=== PATIENT | female | born 1970 | race Caucasian/White ===

== ENCOUNTER → 2019-02-23 10:52 | Outpatient (CLI) | payer BC, SELFPAY ==
--- NOTE | 2019-02-23 10:56 | BI_ITS ---
MAMMOGRAPHY - BILATERAL SCREENING REASON FOR EXAM: Female, 48 years old. Routine annual screening examination. PERTINENT HISTORY: Aunt with breast cancer. Occasional inversion of the left nipple. TECHNIQUE: Digital bilateral breast stephane (3D mammographic acquisition) in the CC and MLO projections. 2-D mediolateral oblique (MLO) and craniocaudad (CC) views of both breasts were obtained. CAD: Full Field Digital Mammography with Computer Added Detection was performed. COMPARISON: Comparison is made with prior study dated October 11, 2016 and February 17, 2017. FINDINGS: Breast Composition: The breasts are heterogeneously dense, which may obscure small masses. There are no dominant masses or suspicious calcifications. Stable small bilateral axillary lymph nodes. No other significant abnormalities are identified. There has been no significant change since the prior study. BI/SCREENING MAMM (CAD), BILAT IMPRESSION: Stable bilateral screening mammogram. Yearly follow-up mammogram recommended. (A) ASSESSMENT CATEGORY: BIRADS Category 2: Benign. A letter regarding these results will be sent to the patient by the facility within 30 days. Approximately 10% of breast cancers are not detected by mammography. A normal mammogram should not delay biopsy of a clinically suspicious abnormality. [id number] Electronically Signed: Marcellus Briseno, at 14:16 EDT , Service support ,
== END ==
PROVIDERS: Family Provider Family Medicine; PCP Family Medicine; Visit Provider Family Medicine
DX: Z12.31 Encounter for screening mammogram for malignant neoplasm of breast (principal)
CPT/HCPCS: 77063; 77067

== ENCOUNTER → 2020-05-23 09:37 | Outpatient (CLI) | payer BC, SELFPAY ==
[2020-05-23 10:28] LABS: Absolute Lymphocyte Count 2.05 X10^3/uL (0.83-4.51); Absolute Neutrophil Count 5.1 X10^3/uL (2.0-7.7); Basophil# 0.04 X10^3/uL; Basophil% 0.5 % (0-1); Eosinophil# 0.95 X10^3/uL; Eosinophils% 11.1 % (0-5); Hematocrit 41.8 % (37-47); Hemoglobin 13.4 g/dL (12.0-15.0); Lymphocyte # 2.05 X10^3/ul (4.0); Lymphocyte % 23.9 % (19-41); Mean Corp Hgb Conc 32.1 g/dL (32-36); Mean Corpuscular Hgb 29.5 pg (27.0-32.0); Mean Corpuscular Volume 92.1 fL (81-99); Mean Platelet Vol. 10.4 fl (6.2-12.0); Monocyte# 0.47 X10^3/uL; Monocyte% 5.5 % (0-10); NRBC Flagged by Analyzer 0 % (0-5); Neutrophil # 5.05 X10^3/uL (2.7-7.7); Neutrophil % 58.7 % (47-70); Platelet Count 302 K/mm3 (150-450); RBC Distribution Width CV 13.1 % (11.6-14.6); RBC Distribution Width SD 44.8 fl (35.1-43.9); Red Blood Count 4.54 M/mm3 (4.2-5.4); White Blood Count 8.6 K/mm3 (4.4-11.0)
[2020-05-23 10:53] LABS: AST(SGOT) 17 U/L (15-37); Alanine Aminotransfer ALT/SGPT 23 U/L (13-56); Albumin, Serum 3.7 g/dL (3.2-5.0); Alkaline Phosphatase 58 U/L (45-117); Anion Gap 6 (5-15); BUN 22 mg/dL (7-18); BUN/Creat Ratio 28.1 RATIO (10-20); Calcium,Total 9.1 mg/dL (8.5-10.1); Chloride 104 mmol/L (98-107); Cholesterol 218 mg/dL (200); Creatinine, Serum 0.78 mg/dL (0.55-1.02); EST Glomerular Filtration Rate 84 mL/min (>60); Est Glom Filt Rate - Afr Amer 101 mL/min (>60); Globulin 3.6 g/dL (2.2-4.2); Glucose 93 mg/dL (74-106); High Density Lipoprotein 55 mg/dL; Protein, Total 7.3 g/dL (6.4-8.2); Sodium Level 138 mmol/L (136-145); Thyroid Stim Hormone (TSH) 2.91 uIU/mL (0.358-3.74); Triglycerides 118 mg/dL; Very Low Density Lipoprotein 24 mg/dL (5-40)
== END ==
PROVIDERS: PCP Family Medicine; Visit Provider Family Medicine
DX: Z00.00 Encounter for general adult medical examination without abnormal findings (principal); Z79.899 Other long term (current) drug therapy; F33.9 Major depressive disorder, recurrent, unspecified
CPT/HCPCS: 36415; 80053; 80061; 84443; 85025

== ENCOUNTER → 2020-05-25 13:19 | Outpatient (CLI) | payer BC, SELFPAY ==
[2020-05-30 19:59] LABS: HPV Reflexed? NOT INDICATED
== END ==
PROVIDERS: PCP Family Medicine; Visit Provider Obstetrics & Gynecology
DX: Z12.4 Encounter for screening for malignant neoplasm of cervix (principal)
CPT/HCPCS: 88175; G0145

== ENCOUNTER → 2020-07-28 08:09 | Outpatient (CLI) | payer BC, SELFPAY ==
--- NOTE | 2020-07-28 08:39 | BI_ITS ---
MAMMOGRAPHY - BILATERAL SCREENING REASON FOR EXAM: Female, 50 years old. Routine annual screening examination. PERTINENT HISTORY: Aunt with breast cancer. TECHNIQUE: Digital bilateral breast randolph (3D mammographic acquisition) in the CC and MLO projections. 2-D mediolateral oblique (MLO) and craniocaudad (CC) views of both breasts were obtained. CAD: Full Field Digital Mammography with Computer Added Detection was performed. COMPARISON: Comparison is made with prior study dated 02/23/2019 and 02/17/2017. FINDINGS: Breast Composition: The breasts are heterogeneously dense, which may obscure small masses. There are no dominant masses or suspicious calcifications. No other significant abnormalities are identified. There has been no significant change since the prior study. BI/SCREEN MAMM (CAD) W/RANDOLPH BILAT IMPRESSION: Stable bilateral screening mammogram. Yearly follow-up mammogram recommended. (A) ASSESSMENT CATEGORY: BIRADS Category 1: Negative. A letter regarding these results will be sent to the patient by the facility within 30 days. Approximately 10% of breast cancers are not detected by mammography. A normal mammogram should not delay biopsy of a clinically suspicious abnormality. [id number] Electronically Signed: Marcellus Briseno, at 8:43 EDT , Service support ,
== END ==
PROVIDERS: PCP Family Medicine; Referring Provider Obstetrics & Gynecology; Visit Provider Obstetrics & Gynecology
DX: Z12.31 Encounter for screening mammogram for malignant neoplasm of breast (principal)
CPT/HCPCS: 77063; 77067

== ENCOUNTER → 2020-09-14 | Outpatient (CLI) | payer BC, SELFPAY | END | disposition home or self-care (01) | PROVIDERS: PCP Family Medicine; Referring Provider Family Medicine; Visit Provider Family Medicine | DX: J39.9 Disease of upper respiratory tract, unspecified (principal) | CPT/HCPCS: 87633 ==

== ENCOUNTER 2020-11-27 08:00 | Outpatient (RCR) | payer BC, SELFPAY | END 2020-11-27 23:59 | LOC: IMMUN 08:00 | PROVIDERS: PCP Family Medicine; Visit Provider Family Medicine | DX: Z23 Encounter for immunization (principal) | CPT/HCPCS: 0011A; 0012A ==

== ENCOUNTER → 2021-03-18 | Outpatient (CLI) | payer BC, SELFPAY ==
--- NOTE | 2021-03-18 | VUL_PTH ---
PATIENT: MAURISIO ROSE LOC: [facility] U#:[id number] AGE/SX: 50/F ROOM: RE03/18/[address]: Dr. Silverio Pang MD : 1970 BED: DIS: 03/18/2021 SPEC #: [id number] RECD: 03/18/21 14:21 STATUS: JAYLEEN RE #: [id number] RUSS: 03/18/21 00:[address]: Silverio Pang DEPT: SURGICAL PATHOLOGY RECD BY: Mariah Crenshaw ENTERED: 03/19/21 08:31 SP TYPE: VULVA BX OTHR DR: Dr. Julio Hdz MD Tissues: Vulva, NOS Procedures: Surgery Specimen Level IV HEADER OPERATION: Vulvar biopsy PRE-OP DIAGNOSIS: Vulvar rash TISSUE SUBMITTED: Vulvar biopsy MICROSCOPIC DIAGNOSIS Vulvar biopsy: A piece of skin with underlying tissue with epithelial hyperplasia and hyperkeratosis. Focal mild chronic inflammation. SJ:chidi 03/20/2021 MICROSCOPIC DESCRIPTION Slides are reviewed. GROSS DESCRIPTION Received in fixative is one container labeled with the patient's name and designated vulvar biopsy. The specimen consists of a piece of friedman soft tissue measuring 1.5 x 0.4 x 0.2 cm. The entire specimen is submitted in one cassette. / SJ:rg 03/19/21 TC:3 CPT: 37002
== END | disposition home or self-care (01) ==
LOC: LABSPEC 13:40
PROVIDERS: PCP Family Medicine; Visit Provider Obstetrics & Gynecology
DX: N76.89 Other specified inflammation of vagina and vulva (principal)
CPT/HCPCS: 88305

== ENCOUNTER 2022-02-20 14:01 | Outpatient (CLI) | payer BC, SELFPAY ==
[2022-02-27 15:58] LABS: HPV APTIMA, High Risk Negative (Negative)
== END 2022-02-20 23:59 | disposition home or self-care (01) ==
LOC: LABSPEC 14:03
PROVIDERS: PCP Family Medicine; Referring Provider Obstetrics & Gynecology; Visit Provider Obstetrics & Gynecology
DX: Z12.4 Encounter for screening for malignant neoplasm of cervix (principal)
CPT/HCPCS: 87624; 88175; G0145

== ENCOUNTER → 2022-05-13 | Outpatient (CLI) | payer BC, SELFPAY ==
--- NOTE | 2022-05-13 10:43 | BI_ITS ---
MAMMOGRAPHY - BILATERAL SCREENING REASON FOR EXAM: Female, 52 years old. Routine annual screening examination. PERTINENT HISTORY: Aunt with breast cancer. TECHNIQUE: Digital bilateral breast randolph (3D mammographic acquisition) in the CC and MLO projections. 2-D mediolateral oblique (MLO) and craniocaudad (CC) views of both breasts were obtained. CAD: Full Field Digital Mammography with Computer Added Detection was performed. COMPARISON: Comparison is made with prior study dated 07/28/2020 and 02/23/2019. FINDINGS: Breast Composition: The breasts are heterogeneously dense, which may obscure small masses. There are no dominant masses or suspicious calcifications. Stable small benign appearing bilateral axillary lymph nodes. No other significant abnormalities are identified. There has been no significant change since the prior study. BI/SCRN MAMM (CAD)W/RANDOLPH BILAT IMPRESSION: Stable bilateral screening mammogram. Yearly follow-up mammogram recommended. (A) ASSESSMENT CATEGORY: BIRADS Category 2: Benign. A letter regarding these results will be sent to the patient by the facility within 30 days. Approximately 10% of breast cancers are not detected by mammography. A normal mammogram should not delay biopsy of a clinically suspicious abnormality. [id number] Electronically Signed: Marcellus Briseno MD at 11:23 EDT ,
== END | disposition home or self-care (01) ==
LOC: OPBI 10:41
PROVIDERS: PCP Family Medicine; Visit Provider Obstetrics & Gynecology
DX: Z12.31 Encounter for screening mammogram for malignant neoplasm of breast (principal)
CPT/HCPCS: 77063; 77067

== ENCOUNTER → 2022-05-19 | Outpatient (CLI) | payer BC, SELFPAY ==
[2022-05-19 08:37] LABS: AST(SGOT) 12 U/L (15-37); Alanine Aminotransfer ALT/SGPT 21 U/L (13-56); Albumin, Serum 3.6 g/dL (3.2-5.0); Alkaline Phosphatase 61 U/L (45-117); Anion Gap 10 (5-15); BUN 26 mg/dL (7-18); BUN/Creat Ratio 34.7 RATIO (10-20); Calcium,Total 9.3 mg/dL (8.5-10.1); Chloride 104 mmol/L (98-107); Cholesterol 221 mg/dL (200); Creatinine, Serum 0.75 mg/dL (0.55-1.02); EST Glomerular Filtration Rate 87 mL/min (>60); Est Glom Filt Rate - Afr Amer 105 mL/min (>60); Globulin 3.5 g/dL (2.2-4.2); Glucose 95 mg/dL (74-106); High Density Lipoprotein 56 mg/dL; Potassium 3.7 mmol/L (3.5-5.1); Protein, Total 7.1 g/dL (6.4-8.2); Sodium Level 141 mmol/L (136-145); Triglycerides 164 mg/dL; Very Low Density Lipoprotein 33 mg/dL (5-40)
== END | disposition home or self-care (01) ==
LOC: LAB 07:22
PROVIDERS: PCP Family Medicine; Visit Provider Family Medicine
DX: Z00.00 Encounter for general adult medical examination without abnormal findings (principal)
CPT/HCPCS: 36415; 80053; 80061; 86141

== ENCOUNTER → 2023-05-19 | Outpatient (CLI) | payer OTHER, SELFPAY ==
--- NOTE | 2023-05-19 15:42 | BI_ITS ---
MAMMOGRAPHY - BILATERAL SCREENING REASON FOR EXAM: Female, 53 years old. Routine annual screening examination. PERTINENT HISTORY: Aunt with breast cancer. TECHNIQUE: Digital bilateral breast randolph (3D mammographic acquisition) in the CC and MLO projections. 2-D mediolateral oblique (MLO) and craniocaudad (CC) views of both breasts were obtained. CAD: Full Field Digital Mammography with Computer Added Detection was performed. COMPARISON: Comparison is made with prior study dated May 13, 2022 and July 28, 2020. FINDINGS: Breast Composition: The breasts are heterogeneously dense, which may obscure small masses. There are no dominant masses or suspicious calcifications. Stable small benign-appearing bilateral axillary lymph nodes. No other significant abnormalities are identified. There has been no significant change since the prior study. BI/SCRN MAMM (CAD)W/RANDOLPH BILAT IMPRESSION: Stable bilateral screening mammogram. Yearly follow-up mammogram recommended. (A) ASSESSMENT CATEGORY: BIRADS Category 2: Benign. A letter regarding these results will be sent to the patient by the facility within 30 days. Approximately 10% of breast cancers are not detected by mammography. A normal mammogram should not delay biopsy of a clinically suspicious abnormality. [id number] Electronically Signed: Marcellus Briseno MD at 8:01 EDT ,
== END | disposition home or self-care (01) ==
LOC: OPBI 15:40
PROVIDERS: PCP Family Medicine; Referring Provider Obstetrics & Gynecology; Visit Provider Obstetrics & Gynecology
DX: Z12.31 Encounter for screening mammogram for malignant neoplasm of breast (principal); Z80.3 Family history of malignant neoplasm of breast
CPT/HCPCS: 77063; 77067

== ENCOUNTER → 2024-09-06 | Outpatient (CLI) | payer OTHER, SELFPAY ==
[2024-09-06 20:33] LABS: Anion Gap 7 (5-15); BUN 22 mg/dL (7-18); BUN/Creat Ratio 31.6 RATIO (10-20); Calcium,Total 9.4 mg/dL (8.5-10.1); Chloride 106 mmol/L (98-107); Cholesterol 222 mg/dL (200); EST Glomerular Filtration Rate 94 mL/min (>60); Est Glom Filt Rate - Afr Amer 113 mL/min (>60); Follicle Stimulating Hormone 12.5 mIU/mL; Glucose 90 mg/dL (74-106); High Density Lipoprotein 64 mg/dL; Luteinizing Hormone 14.4 mIU/mL; Potassium 3.7 mmol/L (3.5-5.1); Sodium Level 139 mmol/L (136-145); Triglycerides 109 mg/dL; Very Low Density Lipoprotein 22 mg/dL (5-40)
[2024-09-08 11:10] LABS: PROGESTERONE 0.3 ng/mL (.)
[2024-09-14 01:07] LABS: Estrogen, Total, Serum 155 pg/mL (.)
== END | disposition home or self-care (01) ==
LOC: MFPLAB 15:12
PROVIDERS: PCP Family Medicine; Referring Provider Nurse Practitioner Family; Visit Provider Nurse Practitioner Family
DX: Z13.220 Encounter for screening for lipoid disorders (principal); N91.2 Amenorrhea, unspecified; R53.83 Other fatigue; Z13.1 Encounter for screening for diabetes mellitus
CPT/HCPCS: 36415; 80048; 80061; 82672; 83001; 83002; 84144; 84443

== ENCOUNTER 2024-12-02 05:12 | Day surgery (SDC) | payer OTHER, SELFPAY ==
[2024-12-02] VITALS (7 sets, daily range): BP systolic 109–153; BP diastolic 63–74; PULSE 84–116; RESP 16; TEMP 36.1–37; O2SAT 93–97; BMI 36.1
--- NOTE | 2024-12-02 06:25 | PRE.ANES_ITS ---
ASA Classification* ASA Classification ASA Classification: 2 Assessment & Plan Anesthesia* Anesthesia Assessment Anesthesia Assessment: Discussed sedation and/or anesthesia options, risks, benefits, and alternatives with patient/parents/legal guardian/POA. Questions invited. The patient/parents/legal guardian/POA seems to understand and agrees to proceed with anesthesia plan. Reviewed the physical assessment, medical history, allergy history and patient home medications list prior to surgery/procedure/anesthetic and documented any changes. Performed airway and anesthesia risk assessments. Anesthesia Type Anesthesia Type: MAC History Source History Obtained from:: Patient and Chart Anesthesia Focused Assessment* Temperature: 98.6 F Pulse Rate: 116 Blood Pressure: 153/71 Respiratory Rate: 16 Pulse Ox: 97 Oxygen Delivery Method: Room Air Airway Assessment Mouth opens: 2 cm Mallampati Score: IV Teeth Condition: Intact Neck Range of motion (ROM): Limited ROM Focused Labs Anesthesia Preop lab: CBC WBC 8.6 K/mm3 (4.4-11.0) 05/23/20 09:39 RBC 4.54 M/mm3 (4.2-5.4) 05/23/20 09:39 Hgb 13.4 g/dL (12.0-15.0) 05/23/20 09:39 Hct 41.8 % (37-47) 05/23/20 09:39 Plt Count 302 K/mm3 (150-450) 05/23/20 09:39 CHEMISTRY Potassium 3.7 mmol/L (3.5-5.1) 09/06/24 15:13 Sodium 139 mmol/L (136-145) 09/06/24 15:13 BUN 22 mg/dL (7-18) H 09/06/24 15:13 Creatinine 0.70 mg/dL (0.55-1.02) 09/06/24 15:13 Glucose 90 mg/dL (74-106) 09/06/24 15:13 TSH 2.700 uIU/mL (0.358-3.740) 09/06/24 15:13 COAG Pre-Assessment Diagnosis/Proposed Procedure Planned Operative Procedure(s): COLONOSCOPY Anesthesia History Anesthesia History - director of product management: Anesthesia History - director of product management Hx Hospitalization No 11/29/24 14:17 Any Problems With Anesthesia No 11/29/24 14:17 Cholinesterase deficiency No 11/29/24 14:17 You/Your Family Experience No 11/29/24 14:17 fever (hyperthermia) with Relationship Recent Exposure to Contagious No 12/02/24 05:48 Disease Does patient have nerve No 11/29/24 14:17 stimulator Patient instructed to have device shut off --Does patient have Pacemaker No 12/02/24 05:48 or ICD? When Was Last Pacemaker Check QUESTION #4 FULL TEXT: You/Your Family Experience fever (hyperthermia) with Anesthesia Last Oral Intake Last Oral intake: Last Oral Intake NPO since 03:00 12/02/24 05:48 Meds taken in AM with sips of water? Meds patient instructed to take am of surgery Any additional information?: Yes NPO since: 02:30 (Patient finished prep at 2:30 AM.) PONV PONV - director of product management: PONV - director of product management Female No 11/29/24 14:17 HX of Motion Sickness No 11/29/24 14:17 HX of N/V After Surgery No 11/29/24 14:17 Non-Smoker Yes 11/29/24 14:17 Duration of Surgery greater No 11/29/24 14:17 than 60 minutes Number of Risk Factors 1 11/29/24 14:17 PONV Score Low Risk 11/29/24 14:17 Height & Weight Height & Weight: Anesthesia: Height & Weight Height 5 ft 12/02/24 05:48 Weight: 84 kg 12/02/24 05:48 Body Mass Index (BMI) 36.1 12/02/24 05:48 Respiratory Assessment Respiratory Assessment - director of product management: Respiratory Tract Infection Hx - director of product management Hx Respiratory Tract Infection No 11/29/24 14:17 STOP Sleep Apnea STOP Sleep Apnea - director of product management: STOP Sleep Apnea - director of product management Hx Hypertension No 11/29/24 14:17 Hx Sleep Apnea No 11/29/24 14:17 CPAP BIPAP Do you snore loudly (louder No 11/29/24 14:17 than talking or can be heard Do you often feel tired/ No 11/29/24 14:17 fatigued/ sleepy during daytime? Has anyone observed you stop No 11/29/24 14:17 breathing during sleep? STOP Results Negative 11/29/24 14:17 QUESTION #5 FULL TEXT : Do you snore loudly (louder than talking or can be heard through closed doors)? Tobacco Use History Tobacco Use History - director of product management: Tobacco Use History - director of product management Tobacco Use Smoking Status Never smoker 11/29/24 14:17 Hx Tobacco Use No 11/29/24 14:17 Years Smoking Packs Smoked per Day Smoking Cessation Date was within the last 15 years Hx Smoking Cessation Date Hx Smoking Cessation Counseling Hematologic Medial History Hematologic Hx - director of product management: Hematologic Medical Hx - drilling supervisor Hx of Blood Transfusion No 11/29/24 14:17 Hx of Transfusion in last 3 No 11/29/24 14:17 Months Date of Last Transfusion (if within last 3 months) Ever experience any problems No 11/29/24 14:17 with transfusion(s)? Specify any problems Hx of Preganancy in last 3 No 11/29/24 14:17 Months Nurse Filling Out Transfusion [id number] 11/29/24 14:17 & Questions: Date: 11/29/24 11/29/24 14:17 Time: 14:19 11/29/24 14:17 Patient unable to answer at this time (ie. confused, unrespo /Reproduction History /Reproductive History - director of product management: /Reproductive Hx- director of product management Hx Now No 11/29/24 14:17 Gestational Age (in weeks): EDC: Hx Hx Para Hx Section SAB No 11/29/24 14:17 [facility] Medical History (Updated 11/29/24 @ 14:22 by Carlos Chairez) Wears contact lenses Anxiety Alcohol use Heartburn Non-smoker Depression Hemorrhoids Home Medications ?Medication ?Instructions ?Recorded ?Last Taken ?Type multivitamin 1 tab PO DAILY 04/09/24 Unknown History amitriptyline 25 mg tablet 25 mg PO QHS PRN sleep 09/09/24 Unknown History buspirone 10 mg tablet 20 mg PO BID 09/09/24 Unknown History clobetasol 0.05 % topical cream 1 applic topical QDAY PRN rash 09/09/24 Unknown History estradiol 10 mcg vaginal tablet 10 mcg vaginal 2XW 09/09/24 Unknown History nitrofurantoin macrocrystal 100 mg 100 mg PO BID PRN ATB 09/09/24 Unknown History capsule quetiapine 300 mg tablet 300 mg PO QHS 09/09/24 Unknown History metformin 500 mg tablet 500 mg PO DAILY 11/29/24 Unknown History Allergy/AdvReac Type Severity Reaction Status Date / Time lithium AdvReac Abdominal Verified 12/02/24 05:47 pain paroxetine (From Paxil) AdvReac Abdominal Verified 12/02/24 05:47 pain Family History (Updated 04/09/24 @ 12:06 by Jessy Sawyer) Other CAD (coronary artery disease) CVA (cerebral vascular accident) Hypertension Surgical History History of dilation and curettage History of section History of cholecystectomy Social History (Updated 09/09/24 @ 12:10 by Alix Candelaria) household members: children current occupational status: employed Smoking Status: Never smoker alcohol intake: current substance use type: does not use Review of Systems (Anesthesia) ROS Narrative System reviewed and no additional complaints, except as documented.
--- NOTE | 2024-12-02 06:43 | HP.PCM_ITS ---
HPI - General General Date of Admission: 12/02/24 Date of Service: 12/02/24 Chief Complaint: Screening colonoscopy HPI Narrative MAURISIO ROSE, is a 54 F who presents today for screening colonoscopy. She has never had 1 before. She has no abdominal pain, cramping, diarrhea. Overall she is in very good health. [facility] Medical History Wears contact lenses Anxiety Alcohol use Heartburn Non-smoker Depression Hemorrhoids Home Medications ?Medication ?Instructions ?Recorded ?Last Taken ?Type multivitamin 1 tab PO DAILY 04/09/24 Unknown History amitriptyline 25 mg tablet 25 mg PO QHS PRN sleep 09/09/24 Unknown History buspirone 10 mg tablet 20 mg PO BID 09/09/24 Unknown History clobetasol 0.05 % topical cream 1 applic topical QDAY PRN rash 09/09/24 Unknown History estradiol 10 mcg vaginal tablet 10 mcg vaginal 2XW 09/09/24 Unknown History nitrofurantoin macrocrystal 100 mg 100 mg PO BID PRN ATB 09/09/24 Unknown History capsule quetiapine 300 mg tablet 300 mg PO QHS 09/09/24 Unknown History metformin 500 mg tablet 500 mg PO DAILY 11/29/24 Unknown History Allergy/AdvReac Type Severity Reaction Status Date / Time lithium AdvReac Abdominal Verified 12/02/24 05:47 pain paroxetine (From Paxil) AdvReac Abdominal Verified 12/02/24 05:47 pain Family History Other CAD (coronary artery disease) CVA (cerebral vascular accident) Hypertension Surgical History History of dilation and curettage History of section History of cholecystectomy Social History household members: children current occupational status: employed Smoking Status: Never smoker alcohol intake: current substance use type: does not use ROS Constitutional Constitutional: Denies fatigue, fever(s), poor appetite, weight gain or weight loss Gastrointestinal Gastrointestinal: Denies belching, bloating, change in bowel habits, change in stool character, chewing difficulty, coffee ground emesis, constipation, cramping, diarrhea, dyspepsia, dysphagia, early satiety, excessive flatus, fecal incontinence, heartburn, hematemesis, hematochezia, hemorrhoids, loose stools, melena, nausea, odynophagia, rectal bleeding, tenesmus, vomiting or weight changes Vital Signs Vital Signs Vital Signs: 12/02/24 05:48 12/02/24 05:48 12/02/24 06:28 Temperature 98.6 F 98.6 F Temperature Source Temporal Pulse Rate 116 H 116 H Respiratory Rate 16 16 Respiratory Pattern Normal Blood Pressure 153/71 H 153/71 H Blood Pressure Mean 98 Blood Pressure Source Monitor Blood Pressure Position Sitting Blood Pressure Location Left Arm Pulse Ox 97 97 Oxygen Delivery Method Room Air Room Air Weight Weight: 185 lb 3.013 oz Body Mass Index (BMI) 36.1 Physical Exam Const alert, oriented x3, no apparent distress and healthy appearing General Appearance: cooperative GI normal to inspection, nondistended, normoactive bowel sounds, soft to palpation, non-tender and non-distended Percussion: normal to percussion Rectal Exam: deferred Assessment & Plan Assessment/Plan (1) Encounter for screening for malignant neoplasm of colon: PLAN: She was explained alternatives, risk, benefits include not withstanding bleeding, infection, sepsis, perforation, need for emergent urgent . She will have an ASA of 3.
--- NOTE | 2024-12-02 07:09 | OP.COLON_ITS ---
Patient Name: Cas[place] Procedure Date: 12/02/2024 6:18 AM Date of : 1970 Age: 54 Procedure: Colonoscopy Indications: Screening for colorectal malignant neoplasm Providers: Sergio Randle DO Referring MD: Julio Hdz Medicines: Monitored Anesthesia Care Patient Profile: This is a 54 year old female. Refer to note in patient chart for documentation of history and physical. Last Colonoscopy: none. The patient's first colonoscopy is today. Complications: No immediate complications. Procedure: Pre-Anesthesia Assessment: - Prior to the procedure, a History and Physical was performed, and patient medications and allergies were reviewed. The patient is competent. The risks and benefits of the procedure and the sedation options and risks were discussed with the patient. All questions were answered and informed consent was obtained. Patient identification and proposed procedure were verified by the physician. Mental Status Examination: normal. Prophylactic Antibiotics: The patient does not require prophylactic antibiotics. Prior Anticoagulants: The patient has taken no anticoagulant or antiplatelet agents except for NSAID medication. ASA Grade Assessment: II - A patient with mild systemic disease. After reviewing the risks and benefits, the patient was deemed in satisfactory condition to undergo the procedure. The anesthesia plan was to use monitored anesthesia care (MAC). Immediately prior to administration of medications, the patient was re-assessed for adequacy to receive sedatives. The heart rate, respiratory rate, oxygen saturations, blood pressure, adequacy of pulmonary ventilation, and response to care were monitored throughout the procedure. The physical status of the patient was re-assessed after the procedure. After I obtained informed consent, the scope was passed under direct vision. Throughout the procedure, the patient's blood pressure, pulse, and oxygen saturations were monitored continuously. The Colonoscope was introduced through the anus and advanced to the cecum, identified by appendiceal orifice and ileocecal valve. The colonoscopy was performed without difficulty. The patient tolerated the procedure well. The quality of the bowel preparation was adequate. Scope In: 6:51:56 AM Scope Withdrawal Time 0 hours 7 minutes 26 seconds Scope Out: 7:05:37 AM Total Procedure Duration Time 0 hours 13 minutes 41 seconds Findings: The perianal and digital rectal examinations were normal. A few small-mouthed diverticula were found in the recto-sigmoid colon and sigmoid colon. The exam was otherwise without abnormality on direct and retroflexion views. Impression: - Diverticulosis in the recto-sigmoid colon and in the sigmoid colon. - The examination was otherwise normal on direct and retroflexion views. - No specimens collected. Recommendation: - Discharge patient to home. - Resume previous diet. - Continue present medications. - Repeat colonoscopy in 10 years for screening purposes. Procedure Code(s): --- Professional --- G0121, Colorectal cancer screening; colonoscopy on individual not meeting criteria for high risk CPT copyright 2021 [employer]. All rights reserved. The codes documented in this report are preliminary and upon ends down checker review may be revised to meet current compliance requirements. Sergio Randle DO 12/02/2024 7:08:27 AM This report has been signed electronically. Number of Addenda: 0 Note Initiated On: 12/02/2024 6:18 AM
--- NOTE | 2024-12-02 07:09 | OP.CCLET_ITS ---
12/02/2024 Julio Hdz [address] [place] [address] Re : Colonoscopy procedure for [place] Dear Dr. Hdz This procedure was performed on Monday, December 02, 2024. My impressions and recommendations are as follows: Impressions : - Diverticulosis in the recto-sigmoid colon and in the sigmoid colon. - The examination was otherwise normal on direct and retroflexion views. - No specimens collected. Recommendations : - Discharge patient to home. - Resume previous diet. - Continue present medications. - Repeat colonoscopy in 10 years for screening purposes. My findings are described in the full procedure note, which is enclosed. If I can be of further assistance, please feel free to contact me at . Sincerely, Sergio Randle, 12/02/2024 7:08:27 AM This report has been signed electronically.
--- NOTE | 2024-12-02 07:15 | PCM.POST.ANE ---
Anesthesia: Postop Eval I Current Vital Signs Temperature: 97 F Pulse Rate: 91 Blood Pressure: 109/63 Respiratory Rate: 16 Pulse Ox: 96 Oxygen Delivery Method: Room Air Assessment Airway patent: Yes Spontaneous unlabored respirations: Yes Mental status: Asleep nausea: No Vomiting: No Anesthesia Complication: No Fluid Hydration Crystalloid volume administer (ml): 50 Total IV fluid infused: 50 Progress Note Anesthesia document: Postop Eval 1 completed: Yes
--- NOTE | 2024-12-02 10:31 | PCM.POSTANE2 ---
Anesthesia Postop Eval I Sum Postop Eval Completion status Anesthesia document: Postop Eval 1 completed: Yes Anesthesia Postop Eval I Summary Anesthesia Postop Eval I Summary: Anesthesia Postop Eval I: Assessment Summary Airway patent Yes 12/02/24 07:15 [email or web address] Spontaneous unlabored Yes 12/02/24 07:15 [email or web address] respirations Mental status Asleep 12/02/24 07:15 [email or web address] nausea No 12/02/24 07:15 [email or web address] Vomiting No 12/02/24 07:15 [email or web address] Anesthesia Postop Eval I: Fluid Summary Crystalloid volume administer 50 12/02/24 07:15 [email or web address] (ml) Colloids volume administered ( ml) Blood Product volume administered (ml) Total IV fluid infused 50 12/02/24 07:15 [email or web address] Anesthesia Postop Eval I: Summary Notes Anesthesia Complication No 12/02/24 07:15 [email or web address] Anesthesia Complication Comment: Post-operative progress note Anesthesia: Postop Eval II Evaluation Mental status: Awake and Calm Pain Level: 0 nausea: No Vomiting: No Complications Anesthesia Complication: No
== END 2024-12-02 08:00 | disposition home or self-care (01) ==
LOC: EN 05:13 → AC 05:14
PROVIDERS: PCP Family Medicine; Referring Provider Family Medicine; Visit Provider Internal Medicine Gastroenterology
PROC: 0DJD8ZZ Inspection of Lower Intestinal Tract, Via Natural or Artificial Opening Endoscopic (ICD-10-PCS; CPT 45378; principal; 2024-12-02 06:25)
DX: Z12.11 Encounter for screening for malignant neoplasm of colon (principal); K57.30 Diverticulosis of large intestine without perforation or abscess without bleeding; F41.9 Anxiety disorder, unspecified; F32.A Depression, unspecified; Z79.899 Other long term (current) drug therapy; Z90.49 Acquired absence of other specified parts of digestive tract
CPT/HCPCS: 45378; A4216; J2405

== ENCOUNTER → 2025-09-12 | Outpatient (CLI) | payer OTHER, SELFPAY ==
[2025-09-12 15:33] LABS: Anion Gap 13 (5-15); BUN 21 mg/dL (4-19); BUN/Creat Ratio 34.6 RATIO (10-20); Calcium,Total 9.5 mg/dL (7.6-11.0); Carbon Dioxide 23.2 mmol/L (21.0-32.0); Chloride 104 mmol/L (98-108); Cholesterol 211 mg/dL (<=200); Glucose 79 mg/dL (70-99); Low Density Lipoprotein Calc. 140 mg/dL; Potassium 3.6 mmol/L (3.3-5.1); Triglycerides 151 mg/dL; Very Low Density Lipoprotein 30 mg/dL (5-40); cholesterol:hdl ratio screen 4.81
[2025-09-15 12:08] LABS: HPV APTIMA, High Risk Negative (Negative)
== END | disposition home or self-care (01) ==
LOC: LABSPEC 11:14 → MFPLAB 11:16
PROVIDERS: Nurse Practitioner Family; PCP Family Medicine; Visit Provider Family Medicine
DX: Z12.4 Encounter for screening for malignant neoplasm of cervix (principal); Z13.1 Encounter for screening for diabetes mellitus; Z13.220 Encounter for screening for lipoid disorders
CPT/HCPCS: 36415; 80048; 80061; 87624; 88175; G0145

== ENCOUNTER → 2025-10-03 | Outpatient (CLI) | payer OTHER, SELFPAY ==
--- NOTE | 2025-10-03 14:25 | BI_ITS ---
EXAM: SCRN MAMM (CAD)W/RANDOLPH BILAT DATE: 10/03/2025 CLINICAL HISTORY: F, Age 55 y/o , SCREENING TECHNIQUE: Procedure Code: [id number] Modality: MG Procedure: SCRN MAMM (CAD)W/RANDOLPH BILAT COMPARISON: Prior exam(s) dated 05/19/2023, 05/13/2022, and 07/28/2020. FINDINGS: TISSUE DENSITY: There are scattered areas of fibroglandular density. Bilateral Breast Mammographic Findings: No significant masses, calcifications or other abnormalities are identified. Stable nodular masslike densities are seen in both breasts. BI/SCRN MAMM (CAD)W/RANDOLPH BILAT IMPRESSION: Benign screening mammogram OVERALL FINAL ASSESSMENT BI-RADS 2: BENIGN RECOMMENDATION: Routine annual follow-up in 1 Year Additional Recommendation none A letter with findings and recommendations will be mailed to the patient. Reading Location: [id number]
== END | disposition home or self-care (01) ==
LOC: OPBI 14:24
PROVIDERS: PCP Family Medicine; Referring Provider Nurse Practitioner Family; Visit Provider Nurse Practitioner Family
DX: Z12.31 Encounter for screening mammogram for malignant neoplasm of breast (principal)
CPT/HCPCS: 77063; 77067